=== PATIENT | female | born 2000 | race Caucasian/White ===

== ENCOUNTER 2019-12-31 21:58 | Emergency (ER) | payer OTHER ==
[~2019-12-31] VITALS: Ht 162.6 cm; Wt 81.8 kg
[2019-12-31 21:58] VITALS: BP 122/81
[2019-12-31] MEDS ORDERED: SYNT25TA PO (22:08)
[2019-12-31] MEDS ORDERED: birth contro (22:08)
--- NOTE | 2019-12-31 22:25 | REPVR ---
PROCEDURE INFORMATION: Exam: CT Head Without Contrast Exam date and time: 12/31/2019 10:17 PM Age: 19 years old Clinical indication: Weakness, facial; Additional info: R sided facial droop TECHNIQUE: Imaging protocol: Computed tomography of the head without contrast. Radiation optimization: All CT scans at this facility use at least one of these dose optimization techniques: automated exposure control; mA and/or kV adjustment per patient size (includes targeted exams where dose is matched to clinical indication); or iterative reconstruction. Other technique: STROKE PROTOCOL was implemented. COMPARISON: No relevant prior studies available. FINDINGS: Brain: Normal. No hemorrhage. Unremarkable white matter. No mass effect. Ventricles: Normal. No ventriculomegaly. Bones/joints: Unremarkable. No acute fracture. Sinuses: Sphenoid mucous retention cyst. Mastoid air cells: Visualized mastoid air cells are well aerated. Soft tissues: Unremarkable. IMPRESSION: 1. No acute intracranial abnormality. 2. [place] Stroke Program Early CT Score (ASPECTS) = 10. Electronically signed by: Kevin Allan On 12/31/2019 22:25:13 PM
[2019-12-31 22:35] LABS: HEMATOCRIT 36.9 % (36.0-47.0); HEMOGLOBIN 12.1 g/dl (12.0-15.5); MEAN CORPUSCULAR HEMOGLOBIN 27.5 pg (27.0-33.0); MEAN CORPUSCULAR HGB CONC 32.8 g/dl (32.0-36.5); MEAN CORPUSCULAR VOLUME 83.9 fl (80.0-96.0); PLATELET COUNT, AUTOMATED 296 10^3/uL (150-450)
[2019-12-31 22:49] LABS: INR 1.03; PROTHROMBIN TIME 13.2 SECONDS (11.8-14.0)
[2019-12-31 23:02] LABS: BLOOD UREA NITROGEN 7 MG/DL (7-18); CALCIUM LEVEL 8.8 MG/DL (8.5-10.1); CARBON DIOXIDE LEVEL 28 MEQ/L (21-32); CHLORIDE LEVEL 107 MEQ/L (98-107); CREATININE FOR GFR 0.87 MG/DL (0.55-1.30); GLUCOSE, FASTING 87 MG/DL (70-100); HCG, SERUM QUALITATIVE NEGATIVE (NEGATIVE); MAGNESIUM LEVEL 2.1 MG/DL (1.8-2.4); POTASSIUM SERUM 3.6 MEQ/L (3.5-5.1); SODIUM LEVEL 140 MEQ/L (136-145)
[2019-12-31] MEDS ORDERED: predniSONE 20 MG TAB PO ONE (23:15)
[2019-12-31] MEDS ORDERED: ACYCLOVIR 200 MG CAPSULE PO ONE (23:15)
[2019-12-31] MEDS ORDERED: ACYC400T PO (23:23)
[2019-12-31] MEDS ORDERED: PRED20TA PO ×2 (23:23)
[2019-12-31] MEDS ORDERED: lacrilube OD (23:23)
== END 2019-12-31 23:29 | disposition home or self-care (01) ==
LOC: M ED 21:58
DX: G51.0 Bell's palsy (principal); Z85.850 Personal history of malignant neoplasm of thyroid